=== PATIENT | male | born 1990 | race Caucasian/White ===

== ENCOUNTER 2018-10-17 10:46 | Emergency (ER) | payer MEDICAID, OTHER ==
[~2018-10-17] VITALS: Ht 185.4 cm; Wt 110.7 kg
[2018-10-17 10:54] VITALS: BP 130/86
== END 2018-10-17 13:16 | disposition home or self-care (01) ==
LOC: ED 13:08
DX: M10.072 Idiopathic gout, left ankle and foot (principal)
CPT/HCPCS: 36415; 84550; 99284